=== PATIENT | male | born 1940 | race Caucasian/White ===

== ENCOUNTER → 2017-10-17 | Outpatient (CLI) | payer MEDICARE ==
[~2017-10-17] MED LIST: ISOVUE-370 76% 100ML VIAL (Q9967) As Ordered
== END ==
LOC: M RAD 09:02
DX: R06.02 Shortness of breath (principal); R05 Cough; K44.9 Diaphragmatic hernia without obstruction or gangrene
CPT/HCPCS: Q9967

== ENCOUNTER 2017-10-21 08:39 | Emergency (ER) | payer MEDICARE ==
[2017-10-21] MEDS: IPRATROPIUM 0.5MG/ALBUTEROL 2.5MG INH SOL UD 3ML (DUONEB)(J7620) NEB (09:02)
[2017-10-21 10:19] LABS: BASO % 0.8 % (0.0-1.0); EOS # 0.1 10^3/uL (0.0-0.50); EOS % 1.5 % (0.0-3.0); HEMATOCRIT 35.8 % (42.0-52.0); IMMATURE GRANULOCYTE % 0.2 % (0-3.0); LYMPH # 1.2 10^3/uL (1.5-4.5); LYMPH % 23.7 % (24.0-44.0); MEAN CORPUSCULAR HEMOGLOBIN 34.6 pg (27.0-33.0); MEAN CORPUSCULAR HGB CONC 33.5 g/dl (32.0-36.5); MEAN CORPUSCULAR VOLUME 103.2 fl (80.0-96.0); MONO # 0.8 10^3/uL (0.0-0.8); MONO % 14.3 % (0.0-5.0); NEUTROPHILS # 3.1 10^3/uL (1.8-7.7); NEUTROPHILS % 59.5 % (36.0-66.0); PLATELET COUNT, AUTOMATED 162 10^3/uL (150-450); RED BLOOD COUNT 3.47 10^6/uL (4.30-6.10); RED CELL DISTRIBUTION WIDTH 14.2 % (11.5-14.5); WHITE BLOOD COUNT 5.2 10^3/uL (4.0-10.0)
[2017-10-21 10:46] LABS: ALBUMIN 3.4 GM/DL (3.2-5.2); ALBUMIN/GLOBULIN RATIO 0.97 (1.00-1.93); ALKALINE PHOSPHATASE 91 U/L (45-117); ALT/SGPT 27 U/L (12-78); AST/SGOT 32 U/L (7-37); BILIRUBIN,DIRECT 0.1 MG/DL (0.0-0.2); BILIRUBIN,TOTAL 0.5 MG/DL (0.2-1.0); LIPASE 152 U/L (73-393); TOTAL PROTEIN 6.9 GM/DL (6.4-8.2)
[2017-10-21 10:49] LABS: ANION GAP 9 MEQ/L (8-16); BLOOD UREA NITROGEN 22 MG/DL (7-18); CALCIUM LEVEL 9.5 MG/DL (8.8-10.2); CARBON DIOXIDE LEVEL 30 MEQ/L (21-32); CHLORIDE LEVEL 96 MEQ/L (98-107); CPK CREATINE PHOSPHOKINASE 278 U/L (39-308); CREATININE FOR GFR 5.66 MG/DL (0.70-1.30); GLOMERULAR FILTRATION RATE 10.5 (>42); GLUCOSE, FASTING 272 MG/DL (70-100); POTASSIUM SERUM 4.2 MEQ/L (3.5-5.1); SODIUM LEVEL 135 MEQ/L (136-145); TROPONIN I < 0.02 NG/ML (< 0.10)
[2017-10-21 10:54] LABS: CK-MB VALUE MASS 2.9 NG/ML (<3.6); MB/CK RELATIVE INDEX 1.04 (< OR =4); NT-PRO BNP 7174 PG/ML (<450)
[2017-10-21] MEDS: AZITHROMYCIN 250 MG TAB PO (11:32)
[2017-10-21] MEDS: PANTOPRAZOLE 40MG TAB (PROTONIX) PO (11:32)
[2017-10-21] MEDS: ONDANSETRON 4 MG ORAL DISINTEGRATING TAB (Q0162 PER 1MG) PO (11:33)
[2017-10-25 00:07] LABS: BORDETELLA PARAPERTUSSIS PCR Negative (Negative); BORDETELLA PERTUSSIS BY PCR Negative (Negative)
== END 2017-10-21 12:01 | disposition home or self-care (01) ==
LOC: M ED 08:39
DX: R05 Cough (principal); R11.10 Vomiting, unspecified; R10.9 Unspecified abdominal pain; E11.9 Type 2 diabetes mellitus without complications; I12.0 Hypertensive chronic kidney disease with stage 5 chronic kidney disease or end stage renal disease; N18.6 End stage renal disease; Z99.2 Dependence on renal dialysis; Z79.899 Other long term (current) drug therapy; Z79.82 Long term (current) use of aspirin; Z79.4 Long term (current) use of insulin
CPT/HCPCS: Q0162

== ENCOUNTER → 2017-12-12 | Outpatient (REF) | payer MEDICARE ==
[2017-12-12 13:35] LABS: FREE T4 0.82 NG/DL (0.76-1.46); FREE THYROXINE INDEX 2.7 % (1.4-3.8); RHEUMATOID FACTOR QUANT < 10.0 IU/ML (<15.0); T UPTAKE 35 % (33-40); THYROXINE (T4) 7.7 UG/DL (4.5-12.0)
[2017-12-12 14:03] LABS: ESTIMATED AVERAGE GLUCOSE 128 MG/DL (60-110); HEMOGLOBIN A1c 6.1 %
[2017-12-12 14:14] LABS: ERYTHROCYTE SEDIMENTATION RATE 25 mm/hr (0-20)
[2017-12-15 14:28] LABS: ANTINUCLEAR ANTIBODIES DIRECT Negative (Negative); VITAMIN B1 LEVEL WHOLE BLOOD 116.1 nmol/L (66.5-200.0); VITAMIN B6,PYRIDOXAL PHOSPHATE 28.6 ug/L (5.3-46.7); VITAMIN E(ALPHA TOCOPHEROL) 10.2 mg/L (9.0-29.0); VITAMIN E(GAMMA TOCOPHEROL) 1.3 mg/L (0.5-4.9)
== END ==
LOC: M LABNEURO 10:17
DX: F03.90 Unspecified dementia, unspecified severity, without behavioral disturbance, psychotic disturbance, mood disturbance, and anxiety (principal); E07.9 Disorder of thyroid, unspecified; E11.9 Type 2 diabetes mellitus without complications; R29.6 Repeated falls
CPT/HCPCS: 84443

== ENCOUNTER → 2017-12-21 | Outpatient (CLI) | payer MEDICARE | LOC: M RAD 09:59 | DX: R90.82 White matter disease, unspecified (principal); R29.6 Repeated falls; R26.81 Unsteadiness on feet; G30.1 Alzheimer's disease with late onset | CPT/HCPCS: 70450 ==

== ENCOUNTER → 2018-03-29 | Outpatient (CLI) | payer MEDICARE ==
[~2018-03-29] MED LIST changes: +/METO25TAB PO; +ASPI81TA85 PO; +ATOR1TAB19 PO; +BACT2OIN10 TOP; +CALC1CAP31 PO; +COLA100C5 PO; +CYMB1CAP PO; +DARB100SYR IV; +FEBU40TA PO; +FISH100035 PO; +GASTROGRAFIN SOLUTION 30ML (Q9963) As Ordered ONE; +INSUDET SC; +INSUHUMDS SC; -ISOVUE-370 76% 100ML VIAL (Q9967) As Ordered; +ISOVUE-370 76% 100ML VIAL (Q9967) As Ordered ONE; +LEVO250T PO; +LORT5TAB PO; +LUTE20CA PO; +MIDO2.5T PO; +MIRA3350 PO; +NEPHTAB PO; +NEUR100C PO; +PROT1TAB2 PO; +SENN8.6T76 PO; +SENO8.6T5 PO; +SEVE80TAB PO; +TERA5CA PO; +TESS100C PO; +TYLE325T5 PO; +VELP5CHW PO; +VITA500047 PO; +VITA50005 PO; +ZITHTAB PO; +ZOFR4TAB14 PO
--- NOTE | 2018-03-29 10:45 | REP ---
CT of the abdomen without IV contrast, followed by CT of the abdomen and pelvis with IV contrast: Comparison is 10/21/2017 without IV contrast. There are scattered diverticula in the ascending colon and transverse colon. There are multiple diverticula in the descending colon and sigmoid colon. There is no pericolonic inflammation or abscess that would indicate acute diverticulitis. There is no pneumoperitoneum. There is no ascites. There is no bowel distension or obstruction. There is no adenopathy or mass. The visualized lung irizarry are unremarkable. The hepatic parenchyma is unremarkable. There are calcifications along the wall of the gallbladder fundus as previously, likely dystrophic calcifications, unchanged. There are calcifications in the pancreatic head, unchanged, likely sequela of previous pancreatitis. The spleen is normal size, homogeneous and unremarkable. The adrenals are unremarkable. Both right and left kidneys are atrophic, as previously. There is a nonobstructive calculus in each kidney. There is no hydronephrosis. The abdominal aorta is unremarkable except for calcified atheroma. There is no retroperitoneal adenopathy. Pelvis: The patient reportedly has an appendectomy. There is no ascites or adenopathy. The bladder is unremarkable. Impression: There is no bowel distension or obstruction. There is diverticulosis without CT evidence of diverticulitis. There is no pneumoperitoneum or ascites. Gallbladder wall dystrophic calcifications, unchanged. Pancreatic head calcifications, unchanged, likely sequela of previous pancreatitis. Appendectomy. Bilateral dystrophic kidneys. Nonobstructive calculus in each kidney. Electronically Signed by Jun Ramírez MD 03/29/2018 10:37 A
== END ==
LOC: M RAD 07:46
PROVIDERS: ATTEND Internal Medicine Nephrology
DX: K57.53 Diverticulitis of both small and large intestine without perforation or abscess with bleeding (principal)
CPT/HCPCS: 74178; Q9963; Q9967

== ENCOUNTER → 2020-02-25 | Outpatient (REF) | payer MEDICARE ==
[~2020-02-25] MED LIST changes: -/METO25TAB PO; -GASTROGRAFIN SOLUTION 30ML (Q9963) As Ordered ONE; -ISOVUE-370 76% 100ML VIAL (Q9967) As Ordered ONE; +METO1TAB87 PO; +NEPH1TAB11 PO; -NEPHTAB PO; +RENV2TAB PO; -SEVE80TAB PO; -TERA5CA PO; +TERA5CAP60 PO
[2020-02-25 18:24] LABS: PERCENT SATURATION 35.6 % (19.7-50.0)
== END ==
LOC: M LAB REF 16:25
PROVIDERS: ATTEND Internal Medicine
DX: N18.9 Chronic kidney disease, unspecified (principal); D63.1 Anemia in chronic kidney disease